=== PATIENT | male | born 1960 | race Two or more races ===

== ENCOUNTER → 2020-02-03 | Outpatient (CLI) | payer SELFPAY | LOC: M LABSMTC 09:34 | PROVIDERS: ATTEND Pediatrics | DX: Z20.828 Contact with and (suspected) exposure to other viral communicable diseases (principal) ==

== ENCOUNTER → 2020-05-24 | Outpatient (CLI) | payer SELFPAY | LOC: M LABSMTC 09:34 | PROVIDERS: ATTEND Pediatrics | DX: Z11.52 Encounter for screening for COVID-19 (principal) ==

== ENCOUNTER → 2022-01-11 | Outpatient (REF) | LOC: M LAB 14:06 ==